=== PATIENT | female | born 1985 | race Caucasian/White ===

== ENCOUNTER 2017-12-11 02:09 | Inpatient (IN) | payer OTHER ==
[2017-12-11] MEDS ORDERED: ACETAMINOPHEN 325 MG TAB PO (03:30)
[2017-12-11] MEDS ORDERED: NACL 0.9% 3 ML SYG IV (03:30)
[2017-12-11] MEDS: SOD CHLORIDE 0.9% 1,000 ML IV ×2 (04:03→15:11)
[2017-12-11] MEDS: KETOROLAC 15 MG INJ IV (04:22)
[2017-12-11 06:48] LABS: ADD MAN DIFF? NO
[2017-12-11 06:57] LABS: WHITE BLOOD COUNT 13.6 10^3/ul (4.8-10.8)
[2017-12-11 06:57] LABS: BASOPHILS % 0.1 % (0.0-2.0); HEMATOCRIT 40.6 % (37.0-47.0); HEMOGLOBIN 13.6 g/dl (12.0-16.0); LYMPHOCYTES # 0.8 10^3/ul (0.8-2.9); LYMPHOCYTES % 6.1 % (15.0-51.0); MEAN CORPUSCULAR HEMOGLOBIN 29.4 pg (29.0-33.0); MEAN CORPUSCULAR HGB CONC 33.5 g/dl (32.0-37.0); MEAN CORPUSCULAR VOLUME 87.9 fl (82.0-101.0); MEAN PLATELET VOLUME 11.8 fl (7.4-10.4); MONOCYTE # 0.7 10^3/ul (0.3-0.9); MONOCYTES % 4.8 % (0.0-11.0); NEUTROPHILS % 88.6 % (39.0-77.0); PLATELET COUNT 279 10^3/UL (140-415); RED BLOOD COUNT 4.62 10^6/ul (4.20-5.40); RED CELL DISTRIBUTION WIDTH 12.6 % (11.5-14.5)
[2017-12-11 07:11] LABS: HEMOGLOBIN A1C 4.9 % (0-5.9)
[2017-12-11 07:22] LABS: LACTIC ACID 2.1 mmol/L (0.5-2.0)
[2017-12-11 07:32] LABS: ALANINE AMINOTRANSFERASE 14 IU/L (13-69); ALBUMIN 4.8 g/dl (3.3-4.9); ALBUMIN/GLOBULIN RATIO 1.33; ALKALINE PHOSPHATASE 78 IU/L (42-121); ANION GAP 21 (8-16); ASPARTATE AMINO TRANSFERASE 21 IU/L (15-46); BILIRUBIN,INDIRECT 0.2 mg/dl (0-1.1); BILIRUBIN,TOTAL 0.2 mg/dl (0.2-1.3); BLOOD UREA NITROGEN 13 mg/dl (7-20); CARBON DIOXIDE 23 mmol/L (21-31); CHLORIDE 109 mmol/L (97-110); CHOLESTEROL 215 mg/dl (100-200); CREATININE 0.56 mg/dl (0.44-1.00); GLUCOSE 152 mg/dl (70-220); HDL CHOLESTEROL 53 mg/dl (34-82); LDL CHOLESTEROL,CALCULATED 137 mg/dl; MAGNESIUM 1.7 mg/dl (1.7-2.5); POTASSIUM 3.5 mmol/L (3.5-5.1); SODIUM 149 mmol/L (135-144); TOTAL PROTEIN 8.4 g/dl (6.1-8.1); TRIGLYCERIDES 125 mg/dl (0-149)
[2017-12-11 07:40] LABS: ETHANOL < 10.0 mg/dl
[2017-12-11] MEDS: ONDANSETRON 4 MG INJ IV (08:09)
[2017-12-11 08:28] LABS: THYROID STIMULATING HORMONE 0.086 MIU/L (0.465-4.680)
[2017-12-11] MEDS: PANTOPRAZOLE (EC) 40 MG TAB PO (09:52)
[2017-12-11] MEDS: RANITIDINE 150 MG TAB PO (09:52)
[2017-12-11] MEDS: traMADol 50 MG TAB PO (12:05)
[2017-12-11] MEDS: METOCLOPRAMIDE 10 MG INJ IV ×2 (12:05→20:40)
[2017-12-11 14:52] LABS: ADD UMIC YES; UR ASCORBIC ACID 20 mg/dL (NEGATIVE); UR BACTERIA FEW /HPF (NONE SEEN); UR BILIRUBIN (Dip) NEGATIVE (NEGATIVE); UR BLOOD (Dip) NEGATIVE (NEGATIVE); UR CLARITY SLIGHTLY CLOUDY (CLEAR); UR COLOR YELLOW (YELLOW); UR GLUCOSE (Dip) NEGATIVE (NEGATIVE); UR KETONES (Dip) 2+ mg/dL (NEGATIVE); UR LEUKOCYTE ESTERASE (Dip) NEGATIVE Leu/ul (NEGATIVE); UR MUCUS FEW /HPF (NONE SEEN); UR NITRITE (Dip) NEGATIVE (NEGATIVE); UR RBC 1 /HPF (0-5); UR SQUAMOUS EPITHELIAL CELL FEW /HPF (FEW); UR TOTAL PROTEIN (Dip) 1+ mg/dl (NEGATIVE); UR UROBILINOGEN (Dip) NEGATIVE (NEGATIVE); UR WBC 4 /HPF (0-5)
[2017-12-11 14:52] LABS: T4 (THYROXINE) 7.9 ug/dl (5.5-11.0)
[2017-12-11 14:53] LABS: FREE T4 (FREE THYROXINE) 1.33 ng/dl (0.79-2.35)
[2017-12-11 15:07] LABS: AMPHETAMINE/METHAMPHETAMINE Negative (NEGATIVE); BARBITURATES Negative (NEGATIVE); BENZODIAZEPINES Negative (NEGATIVE); CANNABINOIDS Positive (NEGATIVE); COCAINE Negative (NEGATIVE); OPIATES Positive (NEGATIVE)
[2017-12-11 16:15] LABS: AMYLASE 34 U/L (11-123)
[2017-12-11 16:15] LABS: LIPASE 13 U/L (23-300)
[2017-12-11] MEDS: GABAPENTIN 300 MG CAP PO (20:40)
[2017-12-11] MEDS: DULOXETINE 30 MG CAP DR PO (20:40)
[2017-12-12] MEDS: SOD CHLORIDE 0.9% 1,000 ML IV ×3 (01:38→19:45)
[2017-12-12] MEDS: METOCLOPRAMIDE 10 MG INJ IV ×3 (04:56→16:30)
[2017-12-12] MEDS: RANITIDINE 150 MG TAB PO (08:51)
[2017-12-12] MEDS: PANTOPRAZOLE (EC) 40 MG TAB PO (08:51)
[2017-12-12] MEDS: PROPRANOLOL 10 MG TAB PO (08:52)
[2017-12-12] MEDS: ONDANSETRON 4 MG INJ IV ×3 (09:21→22:36)
[2017-12-12] MEDS ORDERED: morphine (1 MG/ML) 10ML SYRINGE IV (12:20)
[2017-12-12] MEDS: morphine (1 MG/ML) 10ML SYRINGE IV (12:29)
[2017-12-12] MEDS ORDERED: hydrALAzine 20 MG INJ (12:51)
[2017-12-12] MEDS: hydrALAzine 20 MG INJ IV (13:00)
[2017-12-12] MEDS: traMADol 50 MG TAB PO (16:30)
[2017-12-12] MEDS: GABAPENTIN 300 MG CAP PO (20:39)
[2017-12-12] MEDS: DULOXETINE 30 MG CAP DR PO (20:39)
[2017-12-13] MEDS: SOD CHLORIDE 0.9% 1,000 ML IV ×2 (04:16→06:20)
[2017-12-13] MEDS: METOCLOPRAMIDE 10 MG INJ IV (06:18)
[2017-12-13] MEDS: ONDANSETRON 4 MG INJ IV (06:20)
[2017-12-13] MEDS: PROPRANOLOL 10 MG TAB PO (09:00)
[2017-12-13] MEDS: PANTOPRAZOLE (EC) 40 MG TAB PO (09:08)
[2017-12-13] MEDS: RANITIDINE 150 MG TAB PO (09:08)
== END 2017-12-13 15:15 | disposition home or self-care (01) | DRG 370 ==
LOC: MS2 02:09
PROVIDERS: Family Medicine
PROC: 0DB78ZX Excision of Stomach, Pylorus, Via Natural or Artificial Opening Endoscopic, Diagnostic (ICD-10-PCS; principal; 2017-12-12 10:10)
DX: K22.6 Gastro-esophageal laceration-hemorrhage syndrome (principal); R11.2 Nausea with vomiting, unspecified; K29.70 Gastritis, unspecified, without bleeding; F12.10 Cannabis abuse, uncomplicated; E05.90 Thyrotoxicosis, unspecified without thyrotoxic crisis or storm; I10 Essential (primary) hypertension; F32.9 Major depressive disorder, single episode, unspecified; F41.9 Anxiety disorder, unspecified; M51.37 Other intervertebral disc degeneration, lumbosacral region; G89.29 Other chronic pain; F43.10 Post-traumatic stress disorder, unspecified; F17.210 Nicotine dependence, cigarettes, uncomplicated; E66.9 Obesity, unspecified; Z68.28 Body mass index [BMI] 28.0-28.9, adult
CPT/HCPCS: 74176; 80053; 80061; 80306; 80307; 81001; 82150; 83036; 83605; 83690; 83735; 84436; 84439; 84443; 84703; 85025; 88305

== ENCOUNTER 2018-09-05 05:10 | Observation (INO) | payer OTHER ==
[2018-09-05] MEDS ORDERED: ONDANSETRON 4 MG INJ IV (06:00)
[2018-09-05] MEDS ORDERED: NACL 0.9% 3 ML SYG IV (06:00)
[2018-09-05] MEDS ORDERED: BISACODYL (EC) 5 MG TAB PO (06:00)
[2018-09-05] MEDS ORDERED: DOCUSATE SODIUM 100 MG CAP PO (06:00)
[2018-09-05] MEDS ORDERED: ACETAMINOPHEN 325 MG TAB PO (06:00)
[2018-09-05] MEDS: ONDANSETRON 4 MG INJ IV (06:43)
[2018-09-05 07:10] LABS: ADD MAN DIFF? NO
[2018-09-05 07:12] LABS: WHITE BLOOD COUNT 15.2 10^3/ul (4.8-10.8)
[2018-09-05 07:12] LABS: BASOPHILS % 0.1 % (0.0-2.0); EOSINOPHILS # 0.1 10^3/ul (0.0-0.5); EOSINOPHILS % 0.3 % (0.0-7.0); HEMATOCRIT 38.4 % (37.0-47.0); HEMOGLOBIN 12.4 g/dl (12.0-16.0); LYMPHOCYTES # 2.2 10^3/ul (0.8-2.9); LYMPHOCYTES % 14.2 % (15.0-51.0); MEAN CORPUSCULAR HEMOGLOBIN 28.3 pg (29.0-33.0); MEAN CORPUSCULAR HGB CONC 32.3 g/dl (32.0-37.0); MEAN CORPUSCULAR VOLUME 87.7 fl (82.0-101.0); MEAN PLATELET VOLUME 10.6 fl (7.4-10.4); MONOCYTE # 1.5 10^3/ul (0.3-0.9); MONOCYTES % 9.8 % (0.0-11.0); NEUTROPHIL # 11.4 10^3/ul (1.6-7.5); NEUTROPHILS % 74.6 % (39.0-77.0); PLATELET COUNT 333 10^3/UL (140-415); RED BLOOD COUNT 4.38 10^6/ul (4.20-5.40); RED CELL DISTRIBUTION WIDTH 13.1 % (11.5-14.5)
[2018-09-05 07:32] LABS: ALANINE AMINOTRANSFERASE 25 IU/L (13-69); ALBUMIN 4.6 g/dl (3.3-4.9); ALBUMIN/GLOBULIN RATIO 1.31; ALKALINE PHOSPHATASE 90 IU/L (42-121); ANION GAP 16 (5-13); ASPARTATE AMINO TRANSFERASE 24 IU/L (15-46); BILIRUBIN,INDIRECT 0.7 mg/dl (0-1.1); BILIRUBIN,TOTAL 0.7 mg/dl (0.2-1.3); BLOOD UREA NITROGEN 25 mg/dl (7-20); CALCIUM 9.8 mg/dl (8.4-10.2); CARBON DIOXIDE 26 mmol/L (21-31); CHLORIDE 103 mmol/L (97-110); CHOL/HDL RATIO 4.4 RATIO; CHOLESTEROL 216 mg/dl (100-200); CREATININE 0.51 mg/dl (0.44-1.00); Estimated GFR > 60 mL/min (>60); GLUCOSE 104 mg/dl (70-220); HDL CHOLESTEROL 49 mg/dl (34-82); LDL CHOLESTEROL,CALCULATED 133 mg/dl; MAGNESIUM 2.4 mg/dl (1.7-2.5); SODIUM 145 mmol/L (135-144); TOTAL PROTEIN 8.1 g/dl (6.1-8.1); TRIGLYCERIDES 171 mg/dl (0-149)
[2018-09-05 07:38] LABS: ETHANOL < 10.0 mg/dl (0-0)
[2018-09-05 07:54] LABS: POTASSIUM 2.7 mmol/L (3.5-5.1)
[2018-09-05 08:02] LABS: THYROID STIMULATING HORMONE 0.464 MIU/L (0.465-4.680)
[2018-09-05] MEDS: METOCLOPRAMIDE 10 MG INJ IV ×3 (10:16→22:46)
[2018-09-05 11:24] LABS: AMYLASE 45 U/L (11-123)
[2018-09-05 11:24] LABS: LIPASE 94 U/L (23-300)
[2018-09-05] MEDS: POTASSIUM CHLORIDE (SR) 20 MEQ TAB PO (11:31)
[2018-09-05] MEDS: LACTATED RINGER'S 500 ML IV ×4 (11:32→21:29)
[2018-09-05 12:13] LABS: HEPATITIS C VIRAL ANTIBODY NEGATIVE (NEGATIVE)
[2018-09-05] MEDS: POTASSIUM CHLORIDE 50 ML IVPB ×4 (14:47→21:28)
[2018-09-05] MEDS: morphine SULFATE/PF (2 MG/2 ML) SYG IV ×3 (15:05→22:46)
[2018-09-05] MEDS: ONDANSETRON 4 MG TAB PO (15:05)
[2018-09-05] MEDS ORDERED: clonAZEPAM 0.5 MG TAB PO (21:00)
[2018-09-05] MEDS: RIFAXIMIN 550 MG TAB PO (21:07)
[2018-09-05] MEDS: RANITIDINE 150 MG TAB PO (21:07)
[2018-09-05] MEDS: NORTRIPTYLINE 25 MG CAP PO (22:13)
[2018-09-06] MEDS: LACTATED RINGER'S 500 ML IV ×5 (02:30→16:30)
[2018-09-06 06:19] LABS: ADD MAN DIFF? NO
[2018-09-06 06:32] LABS: BASOPHILS % 0.2 % (0.0-2.0); EOSINOPHILS # 0.3 10^3/ul (0.0-0.5); EOSINOPHILS % 1.6 % (0.0-7.0); HEMATOCRIT 41.8 % (37.0-47.0); HEMOGLOBIN 12.9 g/dl (12.0-16.0); LYMPHOCYTES # 2.6 10^3/ul (0.8-2.9); LYMPHOCYTES % 15.4 % (15.0-51.0); MEAN CORPUSCULAR HEMOGLOBIN 28.3 pg (29.0-33.0); MEAN CORPUSCULAR HGB CONC 30.9 g/dl (32.0-37.0); MEAN CORPUSCULAR VOLUME 91.7 fl (82.0-101.0); MEAN PLATELET VOLUME 10.6 fl (7.4-10.4); MONOCYTE # 1.4 10^3/ul (0.3-0.9); NEUTROPHIL # 12.5 10^3/ul (1.6-7.5); NEUTROPHILS % 73.8 % (39.0-77.0); PLATELET COUNT 300 10^3/UL (140-415); RED BLOOD COUNT 4.56 10^6/ul (4.20-5.40); RED CELL DISTRIBUTION WIDTH 12.8 % (11.5-14.5)
[2018-09-06 06:56] LABS: ANION GAP 16 (5-13); BLOOD UREA NITROGEN 18 mg/dl (7-20); CARBON DIOXIDE 24 mmol/L (21-31); CHLORIDE 102 mmol/L (97-110); CREATININE 0.54 mg/dl (0.44-1.00); Estimated GFR > 60 mL/min (>60); GLUCOSE 102 mg/dl (70-220); POTASSIUM 4.1 mmol/L (3.5-5.1); SODIUM 142 mmol/L (135-144)
[2018-09-06] MEDS: PANTOPRAZOLE (EC) 40 MG TAB PO (08:05)
[2018-09-06] MEDS: ONDANSETRON 4 MG TAB PO ×2 (08:05→15:49)
[2018-09-06] MEDS: RIFAXIMIN 550 MG TAB PO (08:05)
[2018-09-06] MEDS: morphine SULFATE/PF (2 MG/2 ML) SYG IV ×2 (08:06→12:08)
[2018-09-06] MEDS: DULOXETINE 30 MG CAP DR PO (08:06)
[2018-09-06] MEDS: METOCLOPRAMIDE 10 MG INJ IV (11:36)
== END 2018-09-06 19:30 | disposition left against medical advice (07) ==
LOC: TEL 05:10
DX: E87.6 Hypokalemia (principal); E86.0 Dehydration; G43.909 Migraine, unspecified, not intractable, without status migrainosus; M79.7 Fibromyalgia; F17.200 Nicotine dependence, unspecified, uncomplicated; K21.9 Gastro-esophageal reflux disease without esophagitis; F34.1 Dysthymic disorder
CPT/HCPCS: 80048; 80053; 80061; 80307; 82150; 83036; 83690; 83735; 84443; 85025; 86674; 86803; 87045; 87177; 87205; 99217; G0378

== ENCOUNTER 2019-02-04 00:10 | Inpatient (IN) | payer OTHER ==
[2019-02-04] MEDS: ONDANSETRON 4 MG INJ IV ×2 (03:07→07:09)
[2019-02-04] MEDS: HYDROmorphONE 1 MG/ML SYG IV (03:07)
[2019-02-04 03:09] LABS: ADD MAN DIFF? NO; BASOPHILS % 0.3 % (0.0-2.0); EOSINOPHILS % 0.1 % (0.0-7.0); HEMATOCRIT 40.5 % (37.0-47.0); LYMPHOCYTES # 0.9 10^3/ul (0.8-2.9); LYMPHOCYTES % 5.4 % (15.0-51.0); MEAN CORPUSCULAR HEMOGLOBIN 27.4 pg (29.0-33.0); MEAN CORPUSCULAR HGB CONC 32.1 g/dl (32.0-37.0); MEAN CORPUSCULAR VOLUME 85.4 fl (82.0-101.0); MEAN PLATELET VOLUME 11.1 fl (7.4-10.4); MONOCYTE # 0.8 10^3/ul (0.3-0.9); MONOCYTES % 4.9 % (0.0-11.0); NEUTROPHIL # 14.2 10^3/ul (1.6-7.5); NEUTROPHILS % 88.8 % (39.0-77.0); RED BLOOD COUNT 4.74 10^6/ul (4.20-5.40); RED CELL DISTRIBUTION WIDTH 13.1 % (11.5-14.5)
[2019-02-04 03:11] LABS: ADD UMIC YES; UR ASCORBIC ACID NEGATIVE (NEGATIVE); UR BACTERIA FEW /HPF (NONE SEEN); UR BILIRUBIN (Dip) NEGATIVE (NEGATIVE); UR BLOOD (Dip) NEGATIVE (NEGATIVE); UR CLARITY SLIGHTLY CLOUDY (CLEAR); UR COLOR YELLOW (YELLOW); UR GLUCOSE (Dip) NEGATIVE (NEGATIVE); UR KETONES (Dip) 2+ mg/dL (NEGATIVE); UR LEUKOCYTE ESTERASE (Dip) NEGATIVE Leu/ul (NEGATIVE); UR MUCUS FEW /HPF (NONE SEEN); UR NITRITE (Dip) NEGATIVE (NEGATIVE); UR RBC 1 /HPF (0-5); UR SPECIFIC GRAVITY (Dip) 1.019 (1.003-1.030); UR SQUAMOUS EPITHELIAL CELL FEW /HPF (FEW); UR TOTAL PROTEIN (Dip) 1+ mg/dl (NEGATIVE); UR UROBILINOGEN (Dip) NEGATIVE (NEGATIVE); UR WBC 1 /HPF (0-5)
[2019-02-04] MEDS: SOD CHLORIDE 0.9% 1,000 ML IV ×3 (03:12→18:07)
[2019-02-04 03:14] LABS: PLATELET COUNT 221 10^3/UL (140-415); POSITIVE DIFF @See below
[2019-02-04 03:28] LABS: ALANINE AMINOTRANSFERASE 17 IU/L (13-69); ALBUMIN 5.3 g/dl (3.3-4.9); ALKALINE PHOSPHATASE 115 IU/L (42-121); ANION GAP 18 (5-13); ASPARTATE AMINO TRANSFERASE 26 IU/L (15-46); BILIRUBIN,INDIRECT 0.5 mg/dl (0-1.1); BILIRUBIN,TOTAL 0.5 mg/dl (0.2-1.3); BLOOD UREA NITROGEN 12 mg/dl (7-20); CALCIUM 10.9 mg/dl (8.4-10.2); CARBON DIOXIDE 21 mmol/L (21-31); CHLORIDE 106 mmol/L (97-110); CREATININE 0.52 mg/dl (0.44-1.00); Estimated GFR > 60 mL/min (>60); GLUCOSE 175 mg/dl (70-220); LIPASE 111 U/L (23-300); POTASSIUM 3.3 mmol/L (3.5-5.1); SODIUM 145 mmol/L (135-144); TOTAL PROTEIN 9.7 g/dl (6.1-8.1)
[2019-02-04] MEDS: IOHEXOL 300MG/ML 150 ML BTL (04:11)
[2019-02-04] MEDS: SOD CHLORIDE 0.9% 100 ML (04:11)
[2019-02-04] MEDS ORDERED: ACETAMINOPHEN 325 MG TAB PO ×2 (06:30→08:00)
[2019-02-04] MEDS ORDERED: ONDANSETRON 4 MG INJ IV (08:00)
[2019-02-04] MEDS ORDERED: NACL 0.9% 3 ML SYG IV (08:00)
[2019-02-04] MEDS ORDERED: DOCUSATE SODIUM 100 MG CAP PO (08:00)
[2019-02-04] MEDS ORDERED: BISACODYL (EC) 5 MG TAB PO (08:00)
[2019-02-04] MEDS: HYDROmorphONE 0.5 MG/0.5 ML SYG IV ×2 (08:23→12:43)
[2019-02-04] MEDS: METOCLOPRAMIDE 10 MG INJ IV (08:43)
[2019-02-04] MEDS: CEFTRIAXONE 1 GM/50 ML (PMX) 50 ML IVPB (13:41)
[2019-02-04 14:00] LABS: AMPHETAMINE/METHAMPHETAMINE Negative (NEGATIVE); BARBITURATES Negative (NEGATIVE); BENZODIAZEPINES Negative (NEGATIVE); COCAINE Negative (NEGATIVE)
[2019-02-04 14:07] LABS: CANNABINOIDS Positive (NEGATIVE)
[2019-02-04 14:08] LABS: OPIATES Positive (NEGATIVE)
[2019-02-04] MEDS ORDERED: FAMOTIDINE 20 MG INJ IV ×2 (16:00→21:00)
[2019-02-04] MEDS: FAMOTIDINE 20 MG INJ IV (16:22)
[2019-02-04] MEDS ORDERED: POTASSIUM CHLORIDE 100 ML IVPB (16:30)
[2019-02-04 17:11] LABS: MAGNESIUM 1.8 mg/dl (1.7-2.5)
[2019-02-04] MEDS: KETOROLAC 15 MG INJ IV (17:58)
[2019-02-04] MEDS: POTASSIUM CHLORIDE 20 MEQ POWDER FOR ORAL SOLN PO (18:34)
[2019-02-04] MEDS: LORAZEPAM 0.5 MG TAB PO (22:37)
[2019-02-05] MEDS: KETOROLAC 15 MG INJ IV ×2 (00:11→06:53)
[2019-02-05] MEDS: SOD CHLORIDE 0.9% 1,000 ML IV ×2 (04:00→09:31)
[2019-02-05] MEDS: LOPERAMIDE 2 MG CAP PO (04:04)
[2019-02-05 05:00] LABS: ADD MAN DIFF? NO
[2019-02-05 05:01] LABS: BASOPHILS % 0.3 % (0.0-2.0); EOSINOPHILS # 0.1 10^3/ul (0.0-0.5); EOSINOPHILS % 0.6 % (0.0-7.0); HEMATOCRIT 34.1 % (37.0-47.0); HEMOGLOBIN 10.6 g/dl (12.0-16.0); LYMPHOCYTES # 2.6 10^3/ul (0.8-2.9); MEAN CORPUSCULAR HGB CONC 31.1 g/dl (32.0-37.0); MEAN PLATELET VOLUME 10.2 fl (7.4-10.4); MONOCYTE # 0.9 10^3/ul (0.3-0.9); NEUTROPHIL # 8.1 10^3/ul (1.6-7.5); NEUTROPHILS % 68.8 % (39.0-77.0); PLATELET COUNT 296 10^3/UL (140-415); RED BLOOD COUNT 3.79 10^6/ul (4.20-5.40); RED CELL DISTRIBUTION WIDTH 13.7 % (11.5-14.5)
[2019-02-05 05:01] LABS: WHITE BLOOD COUNT 11.8 10^3/ul (4.8-10.8)
[2019-02-05 05:18] LABS: HEMOGLOBIN A1C 5.2 % (0-5.9)
[2019-02-05 05:30] LABS: ALANINE AMINOTRANSFERASE 14 IU/L (13-69); ALBUMIN 4.4 g/dl (3.3-4.9); ALBUMIN/GLOBULIN RATIO 1.51; ALKALINE PHOSPHATASE 72 IU/L (42-121); ANION GAP 12 (5-13); ASPARTATE AMINO TRANSFERASE 28 IU/L (15-46); BILIRUBIN,INDIRECT 0.6 mg/dl (0-1.1); BILIRUBIN,TOTAL 0.6 mg/dl (0.2-1.3); BLOOD UREA NITROGEN 10 mg/dl (7-20); CALCIUM 9.8 mg/dl (8.4-10.2); CARBON DIOXIDE 24 mmol/L (21-31); CHLORIDE 103 mmol/L (97-110); CHOL/HDL RATIO 4.4 RATIO; CHOLESTEROL 213 mg/dl (100-200); CREATININE 0.64 mg/dl (0.44-1.00); Estimated GFR > 60 mL/min (>60); GLUCOSE 107 mg/dl (70-220); HDL CHOLESTEROL 48 mg/dl (34-82); LDL CHOLESTEROL,CALCULATED 134 mg/dl; POTASSIUM 3.2 mmol/L (3.5-5.1); SODIUM 139 mmol/L (135-144); TOTAL PROTEIN 7.3 g/dl (6.1-8.1); TRIGLYCERIDES 153 mg/dl (0-149)
[2019-02-05 05:57] LABS: THYROID STIMULATING HORMONE 0.761 MIU/L (0.465-4.680)
[2019-02-05] MEDS: FAMOTIDINE 20 MG INJ IV (08:07)
[2019-02-05] MEDS: POTASSIUM CHLORIDE 20 MEQ POWDER FOR ORAL SOLN PO (09:30)
== END 2019-02-05 11:34 | disposition home or self-care (01) | DRG 392 ==
LOC: FTE 00:10 → MS1 10:11
DX: K52.9 Noninfective gastroenteritis and colitis, unspecified (principal); I10 Essential (primary) hypertension; F17.210 Nicotine dependence, cigarettes, uncomplicated; F12.10 Cannabis abuse, uncomplicated; E86.0 Dehydration
CPT/HCPCS: 36415; 74177; 76856; 80053; 80061; 80307; 81001; 81025; 83036; 83690; 83735; 84443; 85025; 87040-91; 87086; 96361; 96374; 96375; 99285-25

== ENCOUNTER 2019-02-23 16:53 | Emergency (ER) | payer OTHER ==
[2019-02-23] MEDS: SOD CHLORIDE 0.9% 1,000 ML IV ×2 (17:31→18:41)
[2019-02-23] MEDS: ONDANSETRON 4 MG INJ IV (17:31)
[2019-02-23 17:35] LABS: ADD MAN DIFF? NO
[2019-02-23 17:36] LABS: WHITE BLOOD COUNT 14.4 10^3/ul (4.8-10.8)
[2019-02-23 17:36] LABS: BASOPHILS % 0.3 % (0.0-2.0); HEMATOCRIT 41.7 % (37.0-47.0); HEMOGLOBIN 13.6 g/dl (12.0-16.0); LYMPHOCYTES # 0.8 10^3/ul (0.8-2.9); LYMPHOCYTES % 5.8 % (15.0-51.0); MEAN CORPUSCULAR HEMOGLOBIN 27.3 pg (29.0-33.0); MEAN CORPUSCULAR HGB CONC 32.6 g/dl (32.0-37.0); MEAN CORPUSCULAR VOLUME 83.6 fl (82.0-101.0); MEAN PLATELET VOLUME 9.7 fl (7.4-10.4); MONOCYTE # 0.4 10^3/ul (0.3-0.9); MONOCYTES % 2.9 % (0.0-11.0); NEUTROPHILS % 90.7 % (39.0-77.0); PLATELET COUNT 410 10^3/UL (140-415); RED BLOOD COUNT 4.99 10^6/ul (4.20-5.40)
[2019-02-23 17:58] LABS: ALANINE AMINOTRANSFERASE 17 IU/L (13-69); ALBUMIN 5.2 g/dl (3.3-4.9); ALBUMIN/GLOBULIN RATIO 1.13; ALKALINE PHOSPHATASE 122 IU/L (42-121); ANION GAP 19 (5-13); ASPARTATE AMINO TRANSFERASE 28 IU/L (15-46); BILIRUBIN,INDIRECT 0.4 mg/dl (0-1.1); BILIRUBIN,TOTAL 0.4 mg/dl (0.2-1.3); BLOOD UREA NITROGEN 16 mg/dl (7-20); CARBON DIOXIDE 23 mmol/L (21-31); CHLORIDE 104 mmol/L (97-110); CREATININE 0.63 mg/dl (0.44-1.00); Estimated GFR > 60 mL/min (>60); GLUCOSE 158 mg/dl (70-220); LIPASE 42 U/L (23-300); POTASSIUM 3.4 mmol/L (3.5-5.1); SODIUM 146 mmol/L (135-144); TOTAL PROTEIN 9.8 g/dl (6.1-8.1)
[2019-02-23] MEDS: LORAZEPAM 2 MG INJ IV (18:09)
[2019-02-23 18:17] LABS: ADD UMIC YES; UR ASCORBIC ACID 40 mg/dL (NEGATIVE); UR BACTERIA FEW /HPF (NONE SEEN); UR BILIRUBIN (Dip) NEGATIVE (NEGATIVE); UR BLOOD (Dip) NEGATIVE (NEGATIVE); UR CLARITY SLIGHTLY CLOUDY (CLEAR); UR COLOR YELLOW (YELLOW); UR GLUCOSE (Dip) NEGATIVE (NEGATIVE); UR KETONES (Dip) 2+ mg/dL (NEGATIVE); UR LEUKOCYTE ESTERASE (Dip) NEGATIVE Leu/ul (NEGATIVE); UR NITRITE (Dip) NEGATIVE (NEGATIVE); UR RBC 1 /HPF (0-5); UR SPECIFIC GRAVITY (Dip) 1.025 (1.003-1.030); UR SQUAMOUS EPITHELIAL CELL FEW /HPF (FEW); UR TOTAL PROTEIN (Dip) 1+ mg/dl (NEGATIVE); UR UROBILINOGEN (Dip) NEGATIVE (NEGATIVE); UR WBC 1 /HPF (0-5)
[2019-02-23] MEDS: FAMOTIDINE 20 MG INJ IV (18:33)
[2019-02-23] MEDS: POTASSIUM CHLORIDE (SR) 20 MEQ TAB PO (18:41)
[2019-02-23] MEDS: METOCLOPRAMIDE 10 MG INJ IV (18:53)
[2019-02-23] MEDS: HYDROmorphONE 0.5 MG/0.5 ML SYG IV (18:54)
== END 2019-02-23 20:40 | disposition home or self-care (01) ==
LOC: FTE 16:53
DX: R11.10 Vomiting, unspecified (principal); I10 Essential (primary) hypertension
CPT/HCPCS: 36415; 80053; 81001; 81025; 83690; 85025; 96374; 96375; 99284-25